=== PATIENT | female | born 1955 | race Caucasian/White ===

== ENCOUNTER → 2017-06-06 | Outpatient (CLI) | payer OTHER ==
--- NOTE | 2017-06-06 08:02 | CT ---
EXAMINATION TYPE: CT ankle RT wo con DATE OF EXAM: 06/06/2017 COMPARISON: NONE HISTORY: Displaced fracture of lateral malleous right ankle CT DLP: 260.[address] of the right ankle with reconstruction imaging. TECHNIQUE: Unenhanced CT of the right ankle was performed with bone and soft tissue window settings submitted in the axial coronal and sagittal planes. At a separate workstation 3-[id number] TR imaging was obt ained. FINDINGS: There is extensive postoperative change with limiting streak artifact. Intramedullary madiha is seen wit hin the tibia extending into the talus with fixating screws traversing the fibula and tibia. There is marked disuse osteopenia. Lytic area is noted to involve the distal tibia which may reflect chronic infection. There is angulation of the distal one third of the fibula with the transverse lucent defec ts compatible with the screw removal. Chronic bony fragmentation is seen about the lateral malleolar tip. I do not see evidence for an acute displaced lateral malleolar fracture. Lipoma or cystic lesion of the os calcis. Extensive soft tissue edema noted. IMPRESSION: 1. Extensive postoperative change with disuse osteopenia in the lytic area involving the distal tibia . Chronic osteomyelitis is not excluded. No acute fractures are evident at this time.
== END | disposition home or self-care (01) ==
LOC: RADCTMAIN 06:40
PROVIDERS: ATTEND Orthopaedic Surgery
DX: M85.80 Other specified disorders of bone density and structure, unspecified site (principal); Z98.890 Other specified postprocedural states

== ENCOUNTER → 2019-05-27 | Outpatient (CLI) | payer OTHER ==
[2019-05-27 08:50] VITALS: BP 121/69; PULSE 59; RESP 18; TEMP 98.3; BMI 24.4
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
--- NOTE | 2019-05-27 11:53 | BD ---
EXAMINATION TYPE: Axial Bone Density DATE OF EXAM: 05/27/2019 COMPARISON: 2014 CLINICAL HISTORY: post menopausal, Z 78.0 Height: 5'5 Weight: 140 FRAX RISK QUESTIONS: History of Fracture in Adulthood: y Secondary Osteoporosis: 3. Menopause before 45: y RISK FACTORS HISTORY OF: Family History of Osteoporosis: y Postmenopausal woman: y MEDICATIONS: Additional Medications: xanax, lyrica, norco Additional History: EXAM MEASUREMENTS: Bone mineral densitometry was performed using the [employer] System. Bone mineral density as measured about the Lumbar spine is: ----- L1-L4(G/cm2): 0.912 T Score Values are as follows: ----- L2: -3.1 ----- L3: -1.8 ----- L4: -1.4 ----- L1-L4: -2.2 Bone mineral density has: Decreased -2.9% since study of: 01/05/2015 Bone mineral density about the R hip (g/cm2): 0.657 Bone mineral density about the L hip (g/cm2): 0.714 T Score values are as follows: -----R Neck: -2.7 -----L Neck: -2.3 -----R Total: -3.5 -----L Total: -2.1 Bone mineral density has: Decreased -12.0% since study of: 01/05/2015 IMPRESSION: Osteoporosis (T Score less than -2.5). There is increased fracture risk and therapy is usually indicated based on age. Re-Screen 1-2 years. NOTE: T-SCORE=SD OF THE YOUNG ADULT MEAN.
--- NOTE | 2019-05-28 11:43 | MM ---
Reason for exam: screening (asymptomatic). Last mammogram was performed 3 years and 3 months ago. History: Patient is postmenopausal. Family history of breast cancer in maternal aunt at age 73. Took estrogen for 8 years 1 month beginning at age 33. Physical Findings: A clinical breast exam by your physician is recommended on an annual basis and results should be correlated with mammographic findings. MG 3D Screening Mammo W/Cad Bilateral CC and MLO view(s) were taken. Prior study comparison: February 24, 2016, bilateral MG screening mammo w CAD. January 11, 2015, right breast MG work up mamm w CAD RT. The breast tissue is heterogeneously dense. This may lower the sensitivity of mammography. No suspicious abnormality. No significant changes when compared with prior studies. ASSESSMENT: Negative, BI-RAD 1 RECOMMENDATION: Routine screening mammogram of both breasts in 1 year.
--- NOTE | 2019-06-03 17:04 | P.PN ---
Progress Note - Text Progress Note Date: 06/03/19 OUTPATIENT FOLLOW-UP NOTE TEST(S)/RESULTS: test results from 05/27/2019 include benign mammogram and bone density testing showing osteoporosis. METHOD OF NOTIFICATION: the patient was notified by phone. PATIENT COMMENTS: the patient is interested in using medication for osteoporosis. DIAGNOSIS: benign mammogram and osteoporosis. DISCUSSION: we had a long discussion regarding the problems with osteoporosis. We have also discussed medications that are available to help prevent bone fractures. We have discussed pros and cons with bisphosphonates such as Fosamax. We discussed increased risk for esophageal ulceration, especially if not taken properly. We also discussed risk of osteonecrosis of the jaw. She has no plans for significant dental procedures or jaw surgery. I have also stressed the importance of maintaining adequate amounts of calcium, vitamin D and regular exercise. PLAN: the ACOG handout on osteoporosis CIR185, information on Fosamax, and a lab order slip for serum calcium and creatinine were sent to the patient. After reviewing the information, if she desires to produce seed with medication, she will have the blood tests done. If the blood tests are normal, we will proceed with alendronate treatment.
--- NOTE | 2019-06-17 09:22 | P.PN ---
Progress Note - Text Progress Note Date: 06/17/19 OUTPATIENT FOLLOW-UP NOTE TEST(S)/RESULTS: blood test results from 06/11/2019 include normal serum calcium and normal creatinine. METHOD OF NOTIFICATION: the patient was notified by phone. PATIENT COMMENTS: the patient would like to proceed with treatment for osteoporosis. DIAGNOSIS: osteoporosis with normal serum calcium and normal creatinine. DISCUSSION: the patient is a candidate for Fosamax treatment for her osteoporosis. We had a long discussion regarding the importance of getting adequate calcium, vitamin D and regular exercise. We reviewed possible adverse reactions with Fosamax. I stressed the importance of taking the medication in the appropriate way. She will take it on an empty stomach, drink a full glass of water with the pill and stay upright for at least 30 minutes. We also discussed osteonecrosis of the jaw and importance of not taking the medication i f she has upcoming jaw or significant dental surgery coming up. PLAN: Fosamax 70 mg 1 PO weekly. The prescription will be sent to [facility] pharmacy in [place]. We will repeat bone density testing in approximately 2 years. If she does well with it, will plan on keeping her on it for about 5 years. She was advised to return in one year for her annual well woman exam.
== END ==
LOC: WWCWWP 08:29
PROVIDERS: ATTEND Obstetrics & Gynecology
DX: Z12.31 Encounter for screening mammogram for malignant neoplasm of breast (principal)
CPT/HCPCS: 77063; 77067; 77080

== ENCOUNTER 2019-06-12 12:28 | Emergency (ER) | payer OTHER ==
[2019-06-12] MEDS ORDERED: FAMOTIDINE 20 MG/2 ML VIAL IV STA (12:43)
[2019-06-12] MEDS ORDERED: SODIUM CHLORIDE 0.9% 1,000 ML IV STA (12:43)
[2019-06-12 12:47] VITALS: TEMP 98.1
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
[2019-06-12 15:17] VITALS: BP 125/67; PULSE 61; RESP 20
== END 2019-06-12 15:00 | disposition home or self-care (01) ==
LOC: EC 12:28
DX: T63.441A Toxic effect of venom of bees, accidental (unintentional), initial encounter (principal); T78.2XXA Anaphylactic shock, unspecified, initial encounter; G62.9 Polyneuropathy, unspecified; F32.9 Major depressive disorder, single episode, unspecified; F41.9 Anxiety disorder, unspecified; Z87.891 Personal history of nicotine dependence; Z88.2 Allergy status to sulfonamides; Z79.891 Long term (current) use of opiate analgesic; Z79.899 Other long term (current) drug therapy; Y92.89 Other specified places as the place of occurrence of the external cause
CPT/HCPCS: 96361; 96374; 99285

== ENCOUNTER 2019-09-05 10:00 | Day surgery (SDC) | payer OTHER ==
[2019-09-03 14:56] VITALS: BMI 23.3
[~2019-09-05 10:00] MED LIST: LACTATED RINGERS 1,000 ML IV SCH; LIDOCAINE 1% 20 ML VIAL (10MG/ML) FOR IV START INTRADERMA PRN
[2019-09-05 10:34] VITALS: TEMP 98
[2019-09-05] MEDS ORDERED: LIDOCAINE 1% INJ 10MG/ML (20 ML MDV) ONE (12:04)
[2019-09-05] MEDS ORDERED: PROPOFOL 10 MG/ML 20 ML VIAL IV ONE (12:04)
--- NOTE | 2019-09-05 12:23 | P.PCN ---
Date of Procedure: 09/05/19 Procedure(s) Performed: BRIEF HISTORY: Patient is a 63-year-old pleasant white female scheduled for an elective colonoscopy as a part of screening for colorectal neoplasia. PROCEDURE PERFORMED: Colonoscopy. PREOPERATIVE DIAGNOSIS: Screening for colon cancer. IV sedation per Anesthesia. PROCEDURE: After informed consent was obtained, the patient, was brought into the endoscopy unit. IV sedation was administered by Anesthesia under continuous monitoring. Digital rectal examination was normal. Initially the Olympus CF-160 flexible video colonoscope was then inserted in the rectum, gradually advanced into the cecum without any difficulty. Careful examination was performed as the scope was gradually being withdrawn. Ileocecal valve and the appendiceal orifice were visualized and appeared normal. Prep was fair.. Mucosa of the cecum, ascending colon, transverse colon, descending colon, sigmoid colon, and rectum appeared normal. Retroflexion was performed in the rectum and no lesions were seen. The patient tolerated the procedure well. IMPRESSION: Normal-appearing colon from rectum to cecum with no evidence of colorectal neoplasia. RECOMMENDATIONS: Findings of this examination were discussed with the patient is a family. She was advised to have a repeat screening colonoscopy in 10 years.
[2019-09-05 12:48] VITALS: BP 116/59; PULSE 68; RESP 16
== END 2019-09-05 13:08 | disposition home or self-care (01) ==
LOC: ORWHC2ENDO 10:00
PROVIDERS: ATTEND Internal Medicine Gastroenterology
DX: Z12.11 Encounter for screening for malignant neoplasm of colon (principal); G89.29 Other chronic pain; M54.9 Dorsalgia, unspecified; Z79.891 Long term (current) use of opiate analgesic; Z79.899 Other long term (current) drug therapy; Z88.2 Allergy status to sulfonamides; Z79.83 Long term (current) use of bisphosphonates
CPT/HCPCS: 45378; J2001; J2704

== ENCOUNTER → 2020-08-31 | Outpatient (CLI) | payer OTHER ==
[2020-08-31 12:59] VITALS: BP 108/66; PULSE 70; RESP 18; TEMP 98
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
--- NOTE | 2020-09-01 13:13 | MM ---
Reason for exam: screening (asymptomatic). Last mammogram was performed 1 year and 3 months ago. History: Patient is postmenopausal. Family history of breast cancer in maternal aunt at age 73. Took estrogen for 8 years 1 month beginning at age 33. Physical Findings: A clinical breast exam by your physician is recommended on an annual basis and results should be correlated with mammographic findings. MG 3D Screening Mammo W/Cad Bilateral CC and MLO view(s) were taken. Prior study comparison: May 27, 2019, bilateral MG 3d screening mammo w/cad. February 24, 2016, bilateral MG screening mammo w CAD. The breast tissue is heterogeneously dense. This may lower the sensitivity of mammography. Asymmetries bilaterally are unchanged. No significant changes when compared with prior studies. ASSESSMENT: Benign, BI-RAD 2 RECOMMENDATION: Routine screening mammogram of both breasts in 1 year.
== END | disposition home or self-care (01) ==
LOC: WWCWWP 12:35
PROVIDERS: ATTEND Obstetrics & Gynecology
DX: Z12.31 Encounter for screening mammogram for malignant neoplasm of breast (principal)
CPT/HCPCS: 77063; 77067

== ENCOUNTER → 2020-11-29 | Outpatient (CLI) | payer OTHER ==
[2020-11-29 13:24] VITALS: BP 138/71; PULSE 78; RESP 18; TEMP 98.1
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
== END | disposition home or self-care (01) ==
LOC: PNWHC3 13:03
PROVIDERS: ATTEND Anesthesiology
DX: G90.529 Complex regional pain syndrome I of unspecified lower limb (principal); M79.671 Pain in right foot; M81.0 Age-related osteoporosis without current pathological fracture; Z87.19 Personal history of other diseases of the digestive system; Z87.891 Personal history of nicotine dependence; Z88.2 Allergy status to sulfonamides
CPT/HCPCS: 99211

== ENCOUNTER → 2021-09-13 | Outpatient (CLI) | payer MEDICARE ==
[2021-09-13 14:26] VITALS: BP 117/64; PULSE 61; RESP 18; TEMP 98
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
== END ==
LOC: WWCWWP 13:55
PROVIDERS: ATTEND Obstetrics & Gynecology
DX: Z12.31 Encounter for screening mammogram for malignant neoplasm of breast (principal); Z01.419 Encounter for gynecological examination (general) (routine) without abnormal findings; M81.0 Age-related osteoporosis without current pathological fracture; Z87.891 Personal history of nicotine dependence; Z88.2 Allergy status to sulfonamides; Z91.030 Bee allergy status; Z90.722 Acquired absence of ovaries, bilateral; Z90.710 Acquired absence of both cervix and uterus
CPT/HCPCS: 77063; 77067

== ENCOUNTER → 2021-11-04 | Outpatient (CLI) | payer MEDICARE ==
--- NOTE | 2021-11-07 15:23 | BD ---
EXAMINATION TYPE: Axial Bone Density DATE OF EXAM: 11/04/2021 COMPARISON: 05/27/2019 CLINICAL HISTORY: Height: 64 IN Weight: 136 LBS FRAX RISK QUESTIONS: History of Fracture in Adulthood: RT TIB/ FIB,LT CLAVICLE AGE 55 Secondary Osteoporosis: 3. Menopause before 45: TOTAL HYST AGE 32 RISK FACTORS HISTORY OF: Family History of Osteoporosis: YES MOTHER AND GRANDMOTHER Active: MODERATE Diet low in dairy products/other sources of calcium: YES Postmenopausal woman: TOTAL HYST AGE 32 Take estrogen and/or progesterone medications: TOOK AGE 32-52 MEDICATIONS: Osteoporosis Medications: YES Which medication: ALENDRONATE SODIUM How Lon YEARS Additional Medications: ALENDRONATE SODIUM, CALCIUM, VIT D, LYRICA, NEUROPATHY MEDS, DEPRESSION MED, EXAM MEASUREMENTS: Bone mineral densitometry was performed using the [employer]xta System. Bone mineral density as measured about the Lumbar spine is: ----- L1-L4(G/cm2): 0.979 T Score Values are as follows: ----- L2: -1.9 ----- L3: -1.4 ----- L4: -1.2 ----- L1-L4: -1.7 Bone mineral density has: Increased 6.8% since study of: 05/27/2019 Bone mineral density about the R hip (g/cm2): 0.684 Bone mineral density about the L hip (g/cm2): 0.869 T Score values are as follows: -----R Neck: -2.5 -----L Neck: -1.2 -----R Total: -3.1 -----L Total: -1.8 Bone mineral density has: Increased 7.3% since study of: 05/27/2019 IMPRESSION: Osteoporosis (T Score less than -2.5). There is increased fracture risk and therapy is usually indicated based on age. Re-Screen 1-2 years. NOTE: T-SCORE=SD OF THE YOUNG ADULT MEAN.
--- NOTE | 2021-11-08 14:11 | P.PN ---
Progress Note - Text Progress Note Date: 11/08/21 OUTPATIENT FOLLOW-UP NOTE TEST(S)/RESULTS: Bone density test done on 11/04/2021 shows osteoporosis with increased bone density in both the lumbar spine and hips by about 7% compared to her 2019 bone density test. METHOD OF NOTIFICATION: The patient was notified by phone. PATIENT COMMENTS: DIAGNOSIS: Osteoporosis with some increase in bone density with alendronate. DISCUSSION: I have stressed the importance of continuing to get adequate calcium, vitamin D, and regular exercise. She will continue the alendronate. She has been on alendronate for about 2-1/2 years. We'll consider discontinuing it after a total of 5 years. PLAN: We will plan on repeating the bone density test in 2-3 years.
== END | disposition home or self-care (01) ==
LOC: RADBDWWP 15:36
PROVIDERS: ATTEND Obstetrics & Gynecology
DX: M81.0 Age-related osteoporosis without current pathological fracture (principal); M85.89 Other specified disorders of bone density and structure, multiple sites; Z78.0 Asymptomatic menopausal state
CPT/HCPCS: 77080

== ENCOUNTER → 2022-07-13 | Outpatient (CLI) | payer OTHER, MEDICARE ==
--- NOTE | 2022-07-13 22:41 | MR ---
EXAMINATION TYPE: MR knee LT wo con DATE OF EXAM: 07/13/2022 COMPARISON: Left knee x-ray April 07, 2022 HISTORY: Left knee pain, injury 5 mos ago. TECHNIQUE: Multiplanar, multisequence imaging of the left knee is performed without IV contrast. FINDINGS: MEDIAL MENISCUS: Medial extrusion of medial meniscus on coronal images. Some fraying and increased si gnal posterior horn felt to extend to the inferior articular surface. LATERAL MENISCUS: Anterior and posterior horns are intact without tear. CRUCIATE LIGAMENTS: The anterior and posterior cruciate ligaments are intact and unremarkable. COLLATERAL LIGAMENTS: The medial collateral ligament and lateral collateral ligament complex are inta ct. Mild fluid signal surrounds medial collateral ligament. EXTENSOR MECHANISM: Visualized quadriceps and patellar tendons are intact. EFFUSION: Small to moderate size suprapatellar joint effusion. POPLITEAL CYST: No popliteal/kaplan cyst. TRICOMPARTMENT SPACES: Mild to moderate tricompartment joint space loss without significant spurring. CARTILAGE: Tricompartmental articular cartilage is maintained. BONE MARROW SIGNAL: No focal abnormal marrow signal is appreciated. OTHER: No additional significant abnormality is appreciated. IMPRESSION: 1.. Full-thickness tearing posterior horn medial meniscus. 2. [id number] tricompartment degenerative changes as detailed above. 3. Small to moderate sized popliteal cyst. 4. Mild MCL sprain injury.
== END | disposition home or self-care (01) ==
LOC: RADMRIMAIN 13:06
PROVIDERS: ATTEND Orthopaedic Surgery
DX: M23.222 Derangement of posterior horn of medial meniscus due to old tear or injury, left knee (principal); M17.12 Unilateral primary osteoarthritis, left knee

== ENCOUNTER → 2022-07-28 | Outpatient (CLI) | payer MEDICARE ==
[2022-07-28 14:27] LABS: HCT 41.7 % (37.2-46.3); HGB 13.6 g/dL (12.0-15.0); MCH 31.1 pg (27.0-32.0); MCHC 32.6 g/dL (32.0-37.0); MCV 95.4 fL (80.0-97.0); Mean Platelet Volume 9.9 fL (9.5-12.2); NRBC Per 100 WBC 0 /100 WBCS (0.0-0.0); Platelet Count 309 X 10*3/uL (140-440); RBC 4.37 X 10*6/uL (4.10-5.20); RDW 12.4 % (11.5-14.5)
[2022-07-28 15:15] LABS: ALT 14 U/L (8-44); AST 18 U/L (13-35); African American GFR (CKD) 88.1 (60.0-200.0); Albumin 4.3 g/dL (3.8-4.9); Albumin/Globulin Ratio 2.26 (1.60-3.17); Alkaline Phosphatase 42 U/L (41-126); BUN/Creat Ratio 16.73 Ratio (12.00-20.00); Blood Urea Nitrogen 13.5 mg/dL (9.0-27.0); Calcium 9.6 mg/dL (8.7-10.3); Chloride 104 mmol/L (96-109); Chol/HDL Ratio 3.17 Ratio; Globulin 1.9 g/dL (1.6-3.3); Glucose 92 mg/dL (70-110); LDL Cholesterol,Calculated 183.7 mg/dL (0.0-131.0); Potassium 4.9 mmol/L (3.5-5.5); Sodium 139 mmol/L (135-145); Total Protein 6.3 g/dL (6.2-8.2)
== END | disposition home or self-care (01) ==
LOC: LABWHC1 07:24
PROVIDERS: ATTEND Family Medicine
DX: Z00.01 Encounter for general adult medical examination with abnormal findings (principal)
CPT/HCPCS: 36415; 80053; 80061; 82306; 85027

== ENCOUNTER → 2022-08-11 | Outpatient (CLI) | payer MEDICARE ==
[2022-08-11 17:57] LABS: Basophils # (A) 0.05 X 10*3/uL (0.00-0.10); Basophils % (A) 0.9 %; Eosinophils % (A) 1.7 %; HCT 38.2 % (37.2-46.3); HGB 12.8 g/dL (12.0-15.0); Immature Grans, Automated 0.5 %; Lymphocytes # (A) 1.34 X 10*3/uL (0.90-5.00); Lymphocytes % (A) 22.9 %; MCH 31.1 pg (27.0-32.0); MCHC 33.5 g/dL (32.0-37.0); MCV 92.9 fL (80.0-97.0); Mean Platelet Volume 10.3 fL (9.5-12.2); Monocytes # (A) 0.77 X 10*3/uL (0.20-1.00); Monocytes % (A) 13.2 %; NRBC Per 100 WBC 0 /100 WBCS (0.0-0.0); Neutrophils # (A) 3.55 X 10*3/uL (1.80-7.70); Neutrophils % (A) 60.8 %; Platelet Count 274 X 10*3/uL (140-440); RBC 4.11 X 10*6/uL (4.10-5.20); RDW 12.4 % (11.5-14.5); WBC 5.84 X 10*3/uL (4.50-10.00)
[2022-08-11 18:10] LABS: Anion Gap 10.2 mmol/L (10.00-18.00); BUN/Creat Ratio 22.88 Ratio (12.00-20.00); Blood Urea Nitrogen 18.3 mg/dL (9.0-27.0); Calcium 9.9 mg/dL (8.7-10.3); Carbon Dioxide 25.8 mmol/L (20.0-27.5); Non-African American GFR(CKD) 76.8 (60.0-200.0); Potassium 4.1 mmol/L (3.5-5.5)
== END | disposition home or self-care (01) ==
LOC: LABPAT 13:18
PROVIDERS: ATTEND Orthopaedic Surgery
DX: Z01.818 Encounter for other preprocedural examination (principal); M23.92 Unspecified internal derangement of left knee
CPT/HCPCS: 80048; 85025; 93005

== ENCOUNTER 2022-08-18 06:27 | Day surgery (SDC) | payer OTHER, MEDICARE ==
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
[~2022-08-18 06:27] MED LIST changes: +DEXAMETHASONE SOD PHOSPHATE 4 MG/ML 1 ML VIAL IV ONE; +LIDOCAINE 1% (10MG/ML) FOR IV START INTRADERMA PRN; -LIDOCAINE 1% 20 ML VIAL (10MG/ML) FOR IV START INTRADERMA PRN; +MIDAZOLAM 2 MG/2 ML VIAL IV PRN; +ONDANSETRON 4 MG/2 ML VIAL IVP ONE
[2022-08-18] MEDS ORDERED: ePHEDrine 50 MG/ML 1 ML VIAL ONE (07:39)
[2022-08-18] MEDS ORDERED: fentaNYL (PF) 50 MCG/ML 2 ML AMP ONE (07:39)
[2022-08-18] MEDS ORDERED: PROPOFOL 10 MG/ML 20 ML VIAL IV ONE (07:39)
[2022-08-18] MEDS ORDERED: MIDAZOLAM 2 MG/2 ML VIAL ONE (07:39)
[2022-08-18] MEDS ORDERED: LIDOCAINE 2% INJ 20 MG/ML (2 ML VIAL) ONE (07:39)
--- NOTE | 2022-08-18 08:31 | P.OP ---
Date of Procedure: 08/18/22 Preoperative Diagnosis: Left knee internal derangement Postoperative Diagnosis: Left knee posterior medial meniscal tear/grade 34 chondral injury distal medial femoral condyle Procedure(s) Performed: Left knee arthroscopic partial medial meniscectomy/microfracture medial femoral condyle Anesthesia: NOEA Surgeon: Konstantin Avila Estimated Blood Loss (ml): 10 Pathology: none sent Condition: stable Disposition: PACU Indications for Procedure: The patient is a 66-year-old female who presents with left knee pain and mechanical symptoms after a recent injury. She sustained a fall after her right leg gave out. A discussion of the risks and benefits of operative intervention versus continued conservative measures was made with patient. She opted to proceed with surgery. Operative risks to include infection, neurovascular injury, development of blood clots, possible incomplete resolution of symptoms, possible worsening symptoms and need for subsequent procedures was discussed. Informed consent was obtained. Operative Findings: as below Description of Procedure: The patient was brought to the operating room, and after induction of general anesthesia examined the left knee. Collaterals were stable, Kaya was negative, and posterior drawer was negative. The left lower extremity was prepped and draped in a normal fashion. A superior lateral portal was made through a 3 mm skin incision superior and lateral to the patella. This was used for outflow. A lateral portal was made through a 5 mm vertical skin incision lateral to the patella tendon above the joint line. Diagnostic arthroscopy was performed. On inspection of the medial compartment, a complex tear involving the posterior horn of the medial meniscus in the white-red junction was noted. This was debrided back to stable base with straight baskets and a motorized shaver. A grade 3/4 chondral injury was noted involving the distal lateral portion the medial femoral condyle. Microfracture was performed utilizing a power pick breeching the subchondral surface down to the bone marrow elements. On inspection of the notch, the anterior cruciate ligament appeared to be intact. On inspection of the lateral compartment, no significant meniscal or cartilage pathology was noted. On inspection of the patellofemoral articulation, there was chondral fibrillation however no loose chondral fragments. The gutters were clear debris. The knee was then thoroughly irrigated. The portals were closed with Steri-Strips. A sterile dressing was applied in addition to a compression stocking. The patient was awoken from general anesthesia and transferred to recovery room in good condition. Blood loss was estimated at 10 mL. No complications were incurred.
[2022-08-18 08:32] VITALS: RESP 16; TEMP 97.1
[2022-08-18] MEDS: HYDROmorphone 0.5 MG/0.5 ML SYRINGE IVP PRN ×4 (08:43→09:31)
[2022-08-18] MEDS ORDERED: KETOROLAC 15 MG/ML 1 ML VIAL IVP ONE (08:59)
[2022-08-18] MEDS ORDERED: LACTATED RINGERS 1,000 ML IV ONE (09:56)
[2022-08-18 11:33] VITALS: BP 105/60; PULSE 75
== END 2022-08-18 11:45 | disposition home or self-care (01) ==
LOC: OR 06:27
PROVIDERS: ATTEND Orthopaedic Surgery
DX: S83.242A Other tear of medial meniscus, current injury, left knee, initial encounter (principal); M23.92 Unspecified internal derangement of left knee; G62.9 Polyneuropathy, unspecified; Z79.899 Other long term (current) drug therapy; Z88.8 Allergy status to other drugs, medicaments and biological substances
CPT/HCPCS: 29881; 29879; J2250; J1100; J2405; J0690; J3010; J1885; J2704; J1170; J2001

== ENCOUNTER → 2023-02-01 | Outpatient (CLI) | payer MEDICARE ==
[2023-02-01 22:02] LABS: Basophils # (A) 0.04 X 10*3/uL (0.00-0.10); Basophils % (A) 0.5 %; Eosinophils # (A) 0.11 X 10*3/uL (0.04-0.35); Eosinophils % (A) 1.3 %; HCT 39.3 % (37.2-46.3); HGB 13.1 g/dL (12.0-15.0); Immature Grans, Automated 0.2 %; Lymphocytes # (A) 1.73 X 10*3/uL (0.90-5.00); MCH 31.1 pg (27.0-32.0); MCHC 33.3 g/dL (32.0-37.0); MCV 93.3 fL (80.0-97.0); Mean Platelet Volume 10.2 fL (9.5-12.2); Monocytes # (A) 0.74 X 10*3/uL (0.20-1.00); Monocytes % (A) 8.5 %; NRBC Per 100 WBC 0 /100 WBCS (0.0-0.0); Neutrophils # (A) 6.02 X 10*3/uL (1.80-7.70); Neutrophils % (A) 69.5 %; Platelet Count 277 X 10*3/uL (140-440); RBC 4.21 X 10*6/uL (4.10-5.20); RDW 12.4 % (11.5-14.5); WBC 8.66 X 10*3/uL (4.50-10.00)
== END | disposition home or self-care (01) ==
LOC: LABWHC1 13:37
PROVIDERS: ATTEND Family Medicine
DX: D72.819 Decreased white blood cell count, unspecified (principal)
CPT/HCPCS: 36415; 85025

== ENCOUNTER → 2023-02-12 | Outpatient (CLI) | payer MEDICARE ==
--- NOTE | 2023-02-13 17:47 | MM ---
Reason for Exam: Screening (asymptomatic). Last mammogram was performed 1 year(s) and 5 month(s) ago. Patient History: Menarche at age 15. First Full-Term at age 27. Left ovary removed at age 33. Right ovary removed at age 33. Hysterectomy at age 33. Postmenopausal. Estrogen, starting at age 33 for 8 years, 1 month. Maternal aunt had breast cancer, age 73. Risk Values: Jodie 5 year model risk: 1.7%. NCI Lifetime model risk: 5.9%. Prior Study Comparison: 05/27/2019 Bilateral Screening Mammogram, [facility]. 08/31/2020 Bilateral Screening Mammogram, [facility]. 09/13/2021 Bilateral Screening Mammogram, [facility]. Tissue Density: The breast tissue is heterogeneously dense. This may lower the sensitivity of mammography. Findings: Analyzed By CAD. Areas of bilateral asymmetric density remain unchanged. There is no suspicious group of microcalcifications or new suspicious mass in either breast. Overall Assessment: Benign, BI-RAD 2 Management: Screening Mammogram of both breasts in 1 year. 1. Patient should continue monthly self breast exams. 2. A clinical breast exam by your physician is recommended on an annual basis. 3. This exam should not preclude additional follow-up of suspicious palpable abnormalities. Electronically signed and approved by: Paige Verma M.D. Radiologist
== END | disposition home or self-care (01) ==
LOC: RADMAMWWP 13:16
PROVIDERS: ATTEND Obstetrics & Gynecology
DX: Z12.31 Encounter for screening mammogram for malignant neoplasm of breast (principal); Z78.0 Asymptomatic menopausal state; Z80.3 Family history of malignant neoplasm of breast
CPT/HCPCS: 77063; 77067

== ENCOUNTER → 2024-02-19 | Outpatient (CLI) | payer OTHER, MEDICARE ==
[2024-02-19 14:50] LABS: Basophils # (A) 0.04 X 10*3/uL (0.00-0.10); Basophils % (A) 0.9 %; Eosinophils # (A) 0.23 X 10*3/uL (0.04-0.35); Eosinophils % (A) 5.1 %; HGB 13.8 g/dL (12.0-15.0); Lymphocytes # (A) 1.28 X 10*3/uL (0.90-5.00); Lymphocytes % (A) 28.6 %; MCH 30.9 pg (27.0-32.0); MCHC 32.9 g/dL (32.0-37.0); MCV 94.2 FL (80.0-97.0); Mean Platelet Volume 10.1 FL (9.5-12.2); Monocytes # (A) 0.58 X 10*3/uL (0.20-1.00); Monocytes % (A) 12.9 %; NRBC Per 100 WBC 0 X 10*3/uL (0.00-0.01); Neutrophils # (A) 2.34 X 10*3/uL (1.80-7.70); Neutrophils % (A) 52.3 %; Platelet Count 324 X 10*3/uL (140-440); RBC 4.46 X 10*6/uL (4.10-5.20); RDW 13.7 % (11.5-14.5); WBC 4.48 X 10*3/uL (4.50-10.00)
[2024-02-19 16:05] LABS: Blood Urea Nitrogen 13.6 mg/dL (9.0-27.0); Carbon Dioxide 25.5 mmol/L (21.6-31.8); Chloride 100 mmol/L (96-109); Glucose 83 mg/dL (70-110); Potassium 4.9 mmol/L (3.5-5.5); Sodium 136 mmol/L (135-145)
== END | disposition home or self-care (01) ==
LOC: LABPAT 06:53
PROVIDERS: ATTEND Orthopaedic Surgery
DX: Z01.818 Encounter for other preprocedural examination (principal); M23.92 Unspecified internal derangement of left knee
CPT/HCPCS: 36415; 80048; 85025; 93005

== ENCOUNTER 2024-02-26 08:12 | Day surgery (SDC) | payer OTHER, MEDICARE ==
[2024-02-22 14:45] VITALS: BMI 23.3
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
[~2024-02-26 08:12] MED LIST changes: -DEXAMETHASONE SOD PHOSPHATE 4 MG/ML 1 ML VIAL IV ONE; -LIDOCAINE 1% (10MG/ML) FOR IV START INTRADERMA PRN; -MIDAZOLAM 2 MG/2 ML VIAL IV PRN; -ONDANSETRON 4 MG/2 ML VIAL IVP ONE
[2024-02-26] MEDS: LACTATED RINGERS 1,000 ML IV ONE ×2 (08:32→10:20)
[2024-02-26] MEDS: DEXAMETHASONE SOD PHOSPHATE 4 MG/ML 1 ML VIAL IV ONE (08:41)
[2024-02-26] MEDS: ONDANSETRON 4 MG/2 ML VIAL IVP ONE (08:41)
[2024-02-26] MEDS ORDERED: LIDOCAINE 1% INJ 10MG/ML (20 ML MDV) ONE (08:48)
[2024-02-26] MEDS ORDERED: PROPOFOL 10 MG/ML 20 ML VIAL IV ONE (08:48)
[2024-02-26] MEDS ORDERED: MIDAZOLAM 2 MG/2 ML VIAL ONE (08:48)
[2024-02-26] MEDS ORDERED: fentaNYL (PF) 50 MCG/ML 2 ML AMP ONE (08:48)
[2024-02-26] MEDS ORDERED: KETOROLAC 15 MG/ML 1 ML VIAL ONE (08:48)
[2024-02-26 09:01] VITALS: TEMP 97.3
--- NOTE | 2024-02-26 09:33 | P.OP ---
Date of Procedure: 02/26/24 Preoperative Diagnosis: Left knee internal derangement Postoperative Diagnosis: Left knee posterior medial meniscal tear/grade 3 chondral injury distal lateral medial femoral condyle Procedure(s) Performed: Left knee arthroscopic partial medial meniscectomy/microfracture medial femoral condyle Anesthesia: NOEA Surgeon: Konstantin Avila Estimated Blood Loss (ml): 10 Pathology: none sent Condition: stable Disposition: PACU Indications for Procedure: The patient is a 68-year-old female who presents after multiple recent falls with progressive left knee pain and mechanical symptoms despite conservative measures. A discussion of the risks and benefits of operative intervention v ersus continued conservative measures was made with the patient. She opted to proceed with surgery. Operative risks include infection, neurovascular injury, development of blood clots, possible incomplete resolution of symptoms, possible worsening of symptoms and need for subsequent procedures was discussed. Informed consent was obtained. Operative Findings: As below Description of Procedure: The patient was brought to the operating room, and after induction of general anesthesia examined the left knee. Collaterals were stable, Kaya was negative, and posterior drawer was negative. The left lower extremity was prepped and draped in a normal fashion. A superior lateral portal was made through a 3 mm skin incision superior and lateral to the patella. This was used for outflow. A lateral portal was made through a 5 mm vertical skin incision lateral to the patella tendon above the joint line. Diagnostic arthroscopy was performed. On inspection of the medial compartment, a complex tear involving the posterior horn of the medial meniscus in the white-junction was noted. This was debrided back to stable base with straight baskets and a motorized shaver. The remaining medial meniscus was stable and intact. A grade 3 chondral defect involving the distal lateral portion of the medial femoral condyle was noted measuring 10 x 12 mm. A small loose chondral flap was attributed back to stable base with a motorized shaver. Microfracture was performed utilizing a power pick breaching the subchondral surface down to the bone marrow elements. On inspection of the notch, the anterior cruciate ligament appeared to be intact. On inspection of the lateral compartment, no significant cartilage or meniscal pathology was noted. On inspection of the patellofemoral articulation, grade II chondromalacia was noted however no loose cartilage fragments were present. The gutters were clear debris. The knee was then thoroughly irrigated. The portals were closed with Steri-Strips. A sterile dressing was applied in addition to a compression stocking. The patient was awoken from general anesthesia and transferred to recovery room in good condition. Blood loss was estimated at 10 mL. No complications were incurred.
[2024-02-26] MEDS: HYDROmorphone 0.5 MG/0.5 ML SYRINGE IVP PRN (09:42)
[2024-02-26 09:51] VITALS: RESP 16
[2024-02-26 11:24] VITALS: BP 127/66; PULSE 69
== END 2024-02-26 11:22 | disposition home or self-care (01) ==
LOC: OR 08:12
PROVIDERS: ATTEND Orthopaedic Surgery
DX: S83.242A Other tear of medial meniscus, current injury, left knee, initial encounter (principal); M81.0 Age-related osteoporosis without current pathological fracture; M79.7 Fibromyalgia; M17.12 Unilateral primary osteoarthritis, left knee; Z87.891 Personal history of nicotine dependence; Z82.61 Family history of arthritis; Z88.1 Allergy status to other antibiotic agents; Z88.2 Allergy status to sulfonamides; Z91.030 Bee allergy status
CPT/HCPCS: 29879; 29881; J2250; J1100; J0690; J2405; J2001; J3010; J1885; J2704; J1170

== ENCOUNTER → 2024-05-20 | Outpatient (CLI) | payer MEDICARE ==
[2024-05-20 08:43] LABS: Amorphous Sediment,Urine Rare /hpf; Appearance,Urine Cloudy (Clear); Bilirubin,Urine Negative (Negative); Blood,Urine Negative (Negative); Color,Urine Colorless; Glucose,Urine (UA) Negative (Negative); Ketones,Urine Negative (Negative); Leukocyte Esterase,Urine Negative (Negative); Nitrite,Urine Negative (Negative); PH, Urine 7.5 (5.0-8.0); Protein,Urine Negative (Negative); RBC,Urine <1 /hpf (0-5); Squamous Epithelial Cell,Urine <1 /hpf (0-4); Urobilinogen,Urine <2.0 mg/dL (<2.0); WBC,Urine 1 /hpf (0-5)
[2024-05-20 12:27] LABS: ALT 13 U/L (8-44); AST 20 U/L (13-35); Albumin 4.5 g/dL (3.8-4.9); Albumin/Globulin Ratio 2.14 Ratio (1.60-3.17); Alkaline Phosphatase 66 U/L (41-126); BUN/Creat Ratio 20.12 Ratio (12.00-20.00); Blood Urea Nitrogen 16.1 mg/dL (9.0-27.0); Carbon Dioxide 23.8 mmol/L (21.6-31.8); Chloride 102 mmol/L (96-109); Chol/HDL Ratio 2.44 Ratio; Globulin 2.1 g/dL (1.6-3.3); Glucose 87 mg/dL (70-110); LDL Cholesterol,Calculated 156.1 mg/dL (0.0-131.0); Potassium 4.8 mmol/L (3.5-5.5); Sodium 137 mmol/L (135-145); Total Bilirubin 0.4 mg/dL (0.3-1.2); Total Protein 6.6 g/dL (6.2-8.2); VLDL Calculation 17.94 mg/dL (5.00-40.00)
== END | disposition home or self-care (01) ==
LOC: LABWHC1 06:54
PROVIDERS: ATTEND Family Medicine
DX: Z00.01 Encounter for general adult medical examination with abnormal findings (principal); G60.9 Hereditary and idiopathic neuropathy, unspecified; E78.00 Pure hypercholesterolemia, unspecified
CPT/HCPCS: 36415; 80053; 80061; 81001; 82306; 83036

== ENCOUNTER → 2024-08-28 | Outpatient (CLI) | payer MEDICARE ==
--- NOTE | 2024-08-29 22:54 | XR ---
EXAMINATION TYPE: XR lumbar spine 2 or 3V DATE OF EXAM: 08/28/2024 2:15 PM COMPARISON: None. CLINICAL INDICATION: Female, 68 years old with history of [id number] LOW BACK PAIN, TECHNIQUE: XR lumbar spine 2 or 3V view(s) obtained. FINDINGS: Scoliosis present with the convexity to the right centered at L4. There are 5 lumbar-type vertebral b odies. Pedicles are intact. There is some narrowing of the L2-3 disc height. Disc heights are otherwi se preserved. Spondylosis is present. IMPRESSION: 1. Scoliosis. 2. Mild degenerative disc change L2-3 [facility], , 08/29/2024 10:51 PM
--- NOTE | 2024-08-30 18:07 | BD ---
EXAMINATION TYPE: Axial Bone Density DATE OF EXAM: 08/28/2024 CLINICAL HISTORY: 68 years old Female. ICD-10 CODE: M81.0 KNOWN OSTEOPOROSIS , Additional History: Height: 64.5 Weight: 150 FRAX RISK QUESTIONS: History of Fracture in Adulthood: yes Secondary Osteoporosis: 3. Menopause before 45: yes RISK FACTORS HISTORY OF: MEDICATIONS: EXAM MEASUREMENTS: Bone mineral densitometry was performed using the [email or web address] System. Bone mineral density as measured about the Lumbar spine is: ----- L1-L4(G/cm2): 0.970 T Score Values are as follows: ----- L1: -3.0 ----- L2: -2.1 ----- L3: -1.5 ----- L4: -0.8 ----- L1-L4: -1.8 Z Score Values are as follows: ----- L1: -1.5 ----- L2: -0.6 ----- L3: 0.0 ----- L4: 0.8 ----- L1-L4: -0.2 Bone mineral density has: Decreased -0.9% since study of: 11-04-21 Bone mineral density about the R hip (g/cm2): 0.682 Bone mineral density about the L hip (g/cm2): 0.792 T Score values are as follows: -----R Neck: -2.4 -----L Neck: -2.0 -----R Total: -2.6 -----L Total: -1.7 Z Score values are as follows: -----R Neck: -0.9 -----L Neck: -0.5 -----R Total: -1.3 -----L Total: -0.4 Bone mineral density has: Increased 4.8% since study of: 11-04-21 FRAX%s: The graph provided illustrates a 22.3% chance for a major osteoporotic fx and a 5.2% chance f or the hips probability for fx in 10 years time. IMPRESSION: Osteoporosis (T Score less than -2.5). There is increased fracture risk and therapy is usually indicated based on age. Re-Screen 1-2 years. NOTE: T-SCORE=SD OF THE YOUNG ADULT MEAN. [facility], , 08/30/2024 6:05 PM
== END | disposition home or self-care (01) ==
LOC: RADBDWWP 13:33
PROVIDERS: ATTEND Family Medicine
DX: M51.360 Other intervertebral disc degeneration, lumbar region with discogenic back pain only (principal); M81.0 Age-related osteoporosis without current pathological fracture; M41.86 Other forms of scoliosis, lumbar region; Z78.0 Asymptomatic menopausal state
CPT/HCPCS: 72100; 77080